=== PATIENT | female | born 1960 | race Caucasian/White ===

== ENCOUNTER → 2017-03-03 | Outpatient (CLI) | payer MEDICARE, MEDICAID ==
[~2017-03-03] MED LIST: ABILIFY2 MG PO; ASPIRIN LO-DOSE81 MG PO; BIPAP INH; BUSPIRONE HCL15 MG PO; COLACE CLEAR50 MG PO; COUMADIN ** 9/62 MG PO; DESYREL50 MG PO; DIAMOX SEQUE500 MG PO; DITROPAN5 MG PO; FENTANYL 2 MCG IM; FERGON325 M1 PO; FOLIC ACID1 MG PO; LASIX20 MG PO; LIPITOR40 MG PO; LOPRESSOR25 MG PO; MELATIN3 MG PO; NEURONTIN300 MG PO; OXYGEN M-15 INH; OYSTER SHELL C1 EAC4 PO; OYSTER SHELL C500 MG PO; PLAVIX75 MG PO; PROTONIX40 MG PO; SENOKOT S (S1 TABLET PO; TOPROL XL 5050 MG PO; TOPROL XL25 MG PO; VESICARE10 MG PO; VIIBRYD40 MG PO
== END | disposition disaster alternative care site (69) ==
LOC: GRAD 15:00
DX: M25.531 Pain in right wrist (principal)

== ENCOUNTER → 2017-04-08 | Outpatient (CLI) | payer MEDICARE, MEDICAID | END | disposition disaster alternative care site (69) | LOC: LGSMG 16:40 | DX: R50.9 Fever, unspecified (principal) ==

== ENCOUNTER → 2017-04-14 | Outpatient (CLI) | payer MEDICARE, MEDICAID ==
[2017-04-15 11:20] LABS: BARBITURATE NEGATIVE (NEGATIVE); COCAINE NEGATIVE (NEGATIVE); OPIATES NEGATIVE (NEGATIVE)
[2017-04-15 11:21] LABS: AMPHETAMINE NEGATIVE (NEGATIVE)
== END | disposition disaster alternative care site (69) ==
LOC: LFPA 14:55
PROVIDERS: Physician Assistant
DX: R53.83 Other fatigue (principal); R50.9 Fever, unspecified

== ENCOUNTER → 2017-08-05 | Outpatient (CLI) | payer MEDICARE, MEDICAID | END | disposition disaster alternative care site (69) | LOC: GPOC 07-29 15:00 → GOPP 08-03 09:00 → EDSTATUS 08-03 15:00 → GOPP 08-03 15:00 → GRAD 07:32 | DX: M54.16 Radiculopathy, lumbar region (principal); M51.27 Other intervertebral disc displacement, lumbosacral region; M51.26 Other intervertebral disc displacement, lumbar region; M51.36 Other intervertebral disc degeneration, lumbar region; M51.37 Other intervertebral disc degeneration, lumbosacral region; M47.896 Other spondylosis, lumbar region; M47.897 Other spondylosis, lumbosacral region; G89.4 Chronic pain syndrome; Z45.3 Encounter for adjustment and management of implanted devices of the special senses ==